=== PATIENT | female | born 1995 | race Caucasian/White ===

== ENCOUNTER 2020-11-25 21:16 | Emergency (ER) | payer OTHER ==
[~2020-11-25] VITALS: Ht 162.6 cm; Wt 59.0 kg
[2020-11-25] MEDS ORDERED: MORPHINE SULFATE 2 MG/ML CPJ (NOT FOR IM USE) IV ONE (22:45)
[2020-11-25] MEDS ORDERED: ONDANSETRON HCL 4MG/2ML INJ IV ONE (22:45)
[2020-11-25] MEDS ORDERED: PROPOFOL 200MG/20ML VIAL IV ONE (22:45)
[2020-11-26 01:22] VITALS: BP 106/60
== END 2020-11-26 01:28 | disposition home or self-care (01) ==
LOC: ER 21:16
DX: S43.014A Anterior dislocation of right humerus, initial encounter (principal); Y93.71 Activity, boxing; Y92.89 Other specified places as the place of occurrence of the external cause
CPT/HCPCS: 23650; 73030; 96374; 96375; 99152; 99285; J2270; J2405; J2704

== ENCOUNTER 2022-02-03 11:46 | Observation (INO) | payer OTHER ==
[~2022-02-03] VITALS: Ht 157.5 cm; Wt 59.4 kg
== END 2022-02-03 14:50 | disposition home or self-care (01) ==
LOC: 8EST NSY 11:46 → 8 EST A/PP 12:20
PROVIDERS: ADMIT Obstetrics & Gynecology; ATTEND Obstetrics & Gynecology
DX: O26.852 Spotting complicating pregnancy, second trimester (principal); Z79.899 Other long term (current) drug therapy; Z3A.22 22 weeks gestation of pregnancy
CPT/HCPCS: 76805; 99281; G0378; 59025

== ENCOUNTER 2022-08-07 13:34 | Emergency (ER) | payer OTHER ==
[~2022-08-07] VITALS: Ht 157.5 cm; Wt 59.0 kg
[2022-08-07] MEDS ORDERED: MORPHINE SULFATE 10 MG/ML CPJ IM ONE (14:00)
[2022-08-07] MEDS ORDERED: LIDOCAINE HCL/PF 1% 10 MG/ML 5ML VIAL INFIL ONE (14:00)
[2022-08-07 14:24] VITALS: BP 123/84
[2022-08-07] MEDS ORDERED: LIDOCAINE HCL 1% 10 MG/ML 10ML VIAL IJ ONE (14:45)
== END 2022-08-07 16:12 | disposition home or self-care (01) ==
LOC: ER 13:54
DX: S43.084A Other dislocation of right shoulder joint, initial encounter (principal); X58.XXXA Exposure to other specified factors, initial encounter; Y93.89 Activity, other specified; Y92.018 Other place in single-family (private) house as the place of occurrence of the external cause
CPT/HCPCS: 73030; 96372; 99284; J2270; J3490; Z7610; A4565